=== PATIENT | male | born 1935 | race Caucasian/White ===

== ENCOUNTER 2018-11-07 17:27 | Inpatient (IN) | payer MEDICARE, BC ==
[~2018-11-07] VITALS: Ht 180.3 cm; Wt 81.6 kg
--- NOTE | ~2018-11-07 | HEMODYNAMI ---
PATIENT:PAWAN LEMOS MEDICAL RECORD: [id number] : 31 LOC[id number] ADMISSION DATE: 11/07/18 Generatedon:11/08/201810:26 Patient name: PAWAN LEMOS Patient #: [id number] SSN: [id number] : 1935 Date of study: 11/08/2018 Page: Of Hemodynamic Procedure Report Patient Data Patient Demographics Procedure consent was obtained First Name: PAWAN Gender: Male Last Name: : 1935 [facility] Initial: NAHEED Age: 83 year(s) Patient #: [id number] Race: SSN: [id number] Additional ID: [id number] Contact details Address: [address] [place] [address] State: [place] City: [place] Zip code: [address] Past Medical History Allergies: No known allergies Admission Admission Data Admission Date: 11/07/2018 Admission Time: 18:29 Arrival Date: 11/07/2018 Arrival Time: 0:00 Room #: D.2113 Insurance Payor: Medicare Height (in.): 70.87 BSA: 2.02 (m2) Height (cm.): 180 BMI: 25.31 (kg/m2) Weight (lbs.): 180.78 Weight (kg.): 82 Lab Results Lab Result Date: 11/08/2018 Lab Result Time: 0:00 Biochemistry Name Units Result Min Max BUN mg/dl 18 --(---*)-- 7 18 Creatinine mg/dl 1 --(--*-)-- 0.6 1.3 eGFR ml/min 75 *-(----)-- 90 120 NONAFRICAN CBC Name Units Result Min Max Hematocrit % 41.6 -*(----)-- 42 54 Hemoglobin g/dl 15.1 --(-*--)-- 13.5 17.5 Procedure Procedure Types Cath Procedure Diagnostic Procedure LHC LHC w/Coronaries w/Grafts FFR/IVUS FFR Initial Sedation Charges Moderate Sedation up to 30 minutes PCI Procedure Coronary Stent Coronary Stent Initial AMI/SVG/PHOTOGRAPHIC EQUIPMENT MECHANIC PTCA or Stent SVG-BMS/GISSELLE Initial Procedure Description Procedure Date Procedure Date: 11/08/2018 Procedure Start Time: 9:48 Procedure End Time: 10:21 Procedure Staff Name Function Solo Riley MD Performing Physician Charleen Arita RT Monitor Aniyah Ha RN Nurse Justine Mauricio RT Scrub Procedure Data Cath Procedure Fluoroscopy Diagnostic fluoroscopy Total fluoroscopy Time: 9.9 time: 9.9 min min Diagnostic fluoroscopy Total fluoroscopy dose: dose: 1167 mGy 1167 mGy Contrast Material Contrast Material Type Amount (ml) Isovue 300 218 Entry Location Entry Primary Successful Side Size Upsize Upsize Entry Closure Succes sful Closure Location (Fr) 1 (Fr) 2 (Fr) Remarks Device Remarks Femoral Right 5 Fr 6 Fr Exoseal artery Short Estimated blood loss: 10 ml Diagnostic catheters Device Type Used For End Catheter Placement MULTIPACK Pigtail 5 Fr Procedure catheter MULTIPACK JL 4.0 5Fr Procedure catheter DIAGNOSTIC AR2 MOD 5 Fr Procedure catheter ([id number]) Procedure Complications No complications Procedure Medications Medication Administration Route Dosage 0.9% NaCl I.V. 100 ml/hr Oxygen etCO2 Nasal cannula 2 l/min Lidocaine 2% added to field 20 Heparin Flush Bag added to field 2 bags (1000units/500ml NS) Versed I.V. 2 mg Fentanyl I.V. 50 mcg Fentanyl I.V. 50 mcg Heparin Bolus I.V. 4000 units Integrilin (Bolus I.V. 7.3 ml 2mg/ml) Integrilin (Bolus wasted 2.7 ml 2mg/ml) Plavix P.O. 300 mg Cardene I.C. 300 mcg Cardene I.C. 300 mcg Hemodynamics Rest BSA: 2.02 (m2) HGB: 15.1 (g/dl) O2 Consumption: Estimated: 236.66 (ml/min) O2 Co nsumption indexed: Estimated:117.16 (ml/min/m) Heart Rate: 80 (bpm) Snapshots Pre Cath Intra NCS Post Cath Vital Signs Time Heart Resp SPO2 etCO2 NIBP (mmHg) Rhythm Pain Sedation Rate (ipm) (%) (mmHg) Status Level (bpm) 9:32:36 70 12 96 22.5 154/78(119) NSR 0 (11) 10(A) , No pain 9:36:54 68 17 97 12 149/68(116) NSR 0 (11) 10(A) , No pain 9:41:02 61 19 97 13.6 118/65(95) NSR 0 (11) 10(A) , No pain 9:45:14 72 17 98 24.7 140/75(118) NSR 0 (11) 10(A) , No pain 9:49:36 61 14 97 19.5 149/71(122) NSR 0 (11) 10(A) , No pain 9:54:41 68 15 97 23.2 132/67(103) NSR 0 (11) 9(A) , No pain 9:59:40 67 14 96 30 Measuring NSR 0 (11) 9(A) , No pain 9:59:56 70 14 96 31.5 134/70(112) NSR 0 (11) 9(A) , No pain 10:04:12 71 16 96 23.2 147/80(119) NSR 0 (11) 9(A) , No pain 10:08:35 63 17 97 23.2 135/73(111) NSR 0 (11) 9(A) , No pain 10:12:55 67 15 98 30 123/67(100) NSR 0 (11) 9(A) , No pain 10:17:11 72 16 98 30 119/65(101) NSR 0 (11) 10(A) , No pain 10:21:21 73 16 96 26.2 137/80(99) NSR 0 (11) 10(A) , No pain Medications Time Medication Route Dose Verified Delivered Reason Notes Effectiveness by by 9:31:24 0.9% NaCl I.V. 100 Solo Aniyah used for ml/hr Rosemary Ha final cleaner 9:31:29 Oxygen etCO2 2 Solo Aniyah used for Nasal l/min Rosemary Ha procedure cannula RN 9:31:37 Lidocaine 2% added 20ml Solo Banda for local to vial Rosemary Riley MD anesthetic field 9:31:41 Heparin Flush added 2 Solo Banda used for Bag to bags Rosemary Riley MD procedure (1000units/500ml field NS) 9:46:35 Versed I.V. 2 mg Solo Aniyah for sedation Rosemary aH RN 9:46:41 Fentanyl I.V. 50 Solo Aniyah for sedation mcg Rosemary Ha RN 9:52:00 Fentanyl I.V. 50 Solo Childsyla for sedation mcg Rosemary Ha RN 10:02:48 Heparin Bolus I.V. 4000 Solo Souzaa for verif ied units Rosemary Ha anticoagulation with Dr. ORAL Riley 10:05:02 Integrilin I.V. 7.3 Solo Aniyah for (Bolus 2mg/ml) ml Rosemary Ha antiplatelet RN therapy 10:05:14 Integrilin wasted 2.7 Solo Aniyah for (Bolus 2mg/ml) ml Rosemary Ha antiplatelet RN therapy 10:05:29 Plavix P.O. 300 Solo Childsyla for mg Rosemary Ha antiplatelet RN therapy 10:11:47 Cardene I.C. 300 Solo Banda Per physician birgit Riley MD 10:15:14 Cardene I.C. 300 Solo Solo Per physician birgit Riley MD Procedure Log Time Note 9:05:13 Charleen Arita RT(R) sent for patient. Start room use. 9:12:14 Time tracking: Regular hours (M-F 7:00 - 5:00) 9:12:20 Plan of Care:Hemodynamics will remain stable., Cardiac rhythm will remain stable., Comfort level will be maintained., Respiratory function will remain adequate., Patient/ family verbilizes understanding of procedure., Procedure tolerated without complication., Recovers from procedure without complications.. 9:27:21 Patient received from PCU to CCL 1 Alert and oriented. Tansferred to table in Supine position. 9:27:24 Signed procedure consent form obtained from patient. 9:27:24 Warm blankets applied, and claudia hugger turned on for patient comfort. 9:27:25 Correct patient and procedure confirmed by team. 9:27:25 ECG and BP/O2 sat monitors applied to patient. 9:31:15 Vital chart was started 9:31:24 0.9% NaCl 100 ml/hr I.V. was administered by Aniyah Ha RN; used for procedure; 9:31:29 Oxygen 2 l/min etCO2 Nasal cannula was administered by Aniyah Ha RN; used for procedure; 9:31:37 Lidocaine 2% 20ml vial added to field was administered by Solo Riley MD; for local anesthetic; 9:31:41 Heparin Flush Bag (1000units/500ml NS) 2 bags added to field was administered by Solo Riley MD; used for procedure; 9:32:26 Baseline sample Acquired. 9:32:30 Rhythm: sinus rhythm 9:32:31 Full Disclosure recording started 9:32:31 Pre-op teaching completed and patient verbalized understanding. 9:32:34 Pre-procedure instructions explained to patient. 9:32:36 Family in patients room. 9:32:38 Patient NPO since Midnight. 9:32:42 Patient allergic to No known allergies 9:32:44 Is patient on blood thinner?Yes 9:32:45 ACC The patient was administered the following blood thiners within the last 24 hours: ACCPlavix 9:32:47 Patient diabetic? No. 9:32:53 Previous problem with sedation/anesthesia? No ? 9:32:55 Snore? Yes 9:32:56 Sleep apnea? No 9:32:57 Deviated septum? No 9:32:58 Opens mouth fully? Yes 9:32:59 Sticks out tongue? Yes 9:33:08 Airway obstruction? Yes EMPHYSEMA, PNUEMONIA 9:33:12 Dentures? No ? 9:33:16 Pre procedure: right dorsailis pedis pulse 1+ Palpable, but thready & weak; easily obliterated 9:33:19 Patient pain scale 0/10 ?. 9:33:23 IV patent on arrival in left forearm with 0.9% NaCl at [facility]. 9:33:59 Lab Result : BUN 18 mg/dl 9:33:59 Lab Result : Creatinine 1 mg/dl 9:34:00 Lab Result : eGFR NONAFRICAN 75 ml/min 9:34:00 Lab Result : Hemoglobin 15.1 g/dl 9:34:00 Lab Result : Hematocrit 41.6 % 9:34:03 Lab results completed and on chart. 9:34:07 Right groin area was prepped with chlora-prep and draped in sterile fashion 9:34:08 Alarms reviewed by RCorrie N. 9:34:09 Sharps counted by scrub and verified by R.N. 9:34:10 Sharps counted by scrub and verified by R.N. 9:34:24 Patient Weight : 180.78 lbs 9:34:27 Patient Height : 70.87 inches 9:34:32 Arrival Date: 11/07/2018 12:00:00 AM 9:34:37 Insurance Payor : Medicare 9:34:44 Use device set Femoral Dx 9:34:46 ACIST Syringe (38307) opened to sterile field. 9:34:47 Bag Decanter (2002S) opened to sterile field. 9:34:48 ACIST Hand Control (67254) opened to sterile field. 9:34:48 ACIST Manifold (78374) opened to sterile field. 9:34:49 Tegaderm 4 x 4 (1626W) opened to sterile field. 9:34:50 Medline Cath Pack ([id number]) opened to sterile field. 9:34:51 DIAGNOSTIC Multipack 5Fr catheter set (GE6780) opened to sterile field. 9:34:52 SHEATH 5FR Lowell (ZCR247) opened to sterile field. 9:34:52 EMERALD Guide Wire (363-372) opened to sterile field. 9:43:35 Procedure type changed to Cath procedure, Diagnostic procedure, LHC, LHC w/Coronaries w/Grafts, FFR/IVUS, FFR Initial, Sedation Charges, Moderate Sedation up to 30 minutes, PCI procedure, Coronary Stent, Coronary Stent Initial, AMI/SVG/PHOTOGRAPHIC EQUIPMENT MECHANIC PTCA or Stent, SVG-BMS/GISSELLE Initial 9:43:43 Diagnostic Cath Status : Urgent 9:43:45 PCI Cath Status : Urgent 9:45:57 --------ALL STOP TIME OUT------ 9:45:58 Final Timeout: patient, procedure, and site verified with staff and physician. All members of the team are in agreement. 9:46:01 Right groin site verified by team. 9:46:05 Fire Safety Assessment: A--An alcohol-based skin anteseptic being used preoperatively., C--Open oxygen or nitrous oxide is being used., D--An ESU, laser, or fiber-optic light is being used. 9:46:10 Physical assessment completed. ASA score P 2 - A patient with mild systemic disease as per Solo Riley MD. 9:46:13 2) 60-89 Mildly reduced kidney function, and other findings (as for stage 1) point to kidney disease. 9:46:19 Maximum allowable contrast dose (3.7 X eGFR X 0.75)208 ml. 9:46:22 Sedation plan: IV Moderate Sedation Medication:Versed, Fentanyl 9:46:35 Versed 2 mg I.V. was administered by Aniyah Ha RN; for sedation; 9:46:41 Fentanyl 50 mcg I.V. was administered by Aniyah Ha RN; for sedation; 9:48:08 Procedure started. 9:48:11 Zero performed for pressure channel P1 9:48:20 Local anesthetic to right femoral artery with Lidocaine 2% by Solo Riley MD.INITIAL ACCESS ONLY 9:48:38 A 5 Fr sheath was inserted into the Right Femoral artery 9:49:41 A MULTIPACK Pigtail 5 Fr catheter was advanced over the wire and used for Procedure. 9:49:56 LV gram done using CIFUENTES 9:49:59 Injector settings: Ml/sec: 10, Volume: 20, 9:50:06 EF : 40 % 9:50:41 Catheter removed. 9:51:45 A MULTIPACK JL 4.0 5Fr catheter was advanced over the wire and used for Procedure. 9:51:49 DOMINGUEZ to LAD angiography performed. 9:52:00 Fentanyl 50 mcg I.V. was administered by Aniyah Ha RN; for sedation; 9:53:25 UNABLE TO ENGAGE LCA 9:53:35 SHEATH 6FR Lowell (GVC689) opened to sterile field. 9:53:43 Sheath upsized to a 6 Fr Short. 9:53:58 GUIDE 6FR EBU 4.0 guide catheter ([id number]) opened to sterile field. 9:57:13 6 Fr EBU 4 guide catheter was inserted over the wire 9:57:17 LCA angiography performed. 9:57:20 [place] Verrata Plus pressure wire (59331H) opened to sterile field. 9:58:07 FFR/IFR wire advanced. 9:58:22 Wire advanced across lesion. 10:00:23 INFLATOR Merit BasixCompak (LY7861) opened to sterile field. 10:00:23 Pre PCI Site: Vein Graft pRCA has 85% stenosis. 10:00:28 Pre PCI Site: [place] Diag1 has 85% stenosis. 10:00:38 Pre PCI Site: Vein Graft pCirc has 85% stenosis. 10:01:57 Diag1 lesion measured at .82 with IFR 10:02:48 Heparin Bolus 4000 units I.V. was administered by Aniyah Ha RN; for anticoagulation; verified with Dr. Riley 10:04:28 Place stent Inflation Number: 1 A ALESHIA RX 2.25 x 22 stent ([id number]) was prepped and advanced across the 1st Diag . The stent was deployed at 15 GANESH for 0:00 (min:sec) . 10:04:52 Stent catheter was removed intact over wire. 10::52 Wire removed. 10:04:53 Guide catheter removed. 10:05:02 Integrilin (Bolus 2mg/ml) 7.3 ml I.V. was administered by Aniyah Ha RN; for antiplatelet therapy; 10:05:14 Integrilin (Bolus 2mg/ml) 2.7 ml wasted was administered by Aniyah Ha RN; for antiplatelet therapy; 10:05:19 6 Fr AR 2 guide catheter was inserted over the wire 10:05:19 GUIDE 6FR AR 2.0 catheter ([id number]) opened to sterile field. 10:05:19 A DIAGNOSTIC AR2 MOD 5 Fr catheter ([id number]) was advanced over the wire and used for Procedure. 10:05:29 Plavix 300 mg P.O. was administered by Aniyah Ha RN; for antiplatelet therapy; 10:07:07 SVG to RCA angiography performed. 10:08:36 SVG to Circ angiography performed. 10:09:15 CHOICE PT Extra Support 182cm wire ([id number]) opened to sterile field. 10:11:11 Place stent Inflation Number: 1 A ALESHIA RX 4.0 x 22 stent ([id number]) was prepped and advanced across the Aorta Left -> Mid CX . The stent was deployed at 19 GANESH for 0:00 (min:sec) . 10:11:47 Cardene 300 mcg I.C. was administered by Solo Riley MD; Per physician; 10:12:03 Stent catheter was removed intact over wire. 10:12:03 Wire removed from svg- CX. 10:13:16 WIRE ADVANCED TO THE SVG- RCA 10:15:14 Cardene 300 mcg I.C. was administered by Solo Riley MD; Per physician; 10:15:18 Place stent Inflation Number: 1 A ALESHIA RX 5.0 x 18 stent ([id number]) was prepped and advanced across the Aorta Right -> Prox RCA . The stent was deployed at 17 GANESH for 0:00 (min:sec) . 10:15:48 Stent catheter was removed intact over wire. 10:15:48 Wire removed. 10:15:49 Guide catheter removed. 10:16:22 EXOSEAL 6Fr (EX600) opened to sterile field. 10:16:39 Sheath removed intact; hemostasis achieved with Exoseal to the Right Femoral artery. 10:16:40 Procedure ended.(Physican Out) 10:18:18 Fluoroscopy time 09.90 minutes. 10:18:21 Flurop Dose total: 1167 10:18:21 Fluoroscopy dose: 1167 mGy 10:18:26 Contrast amount:Isovue 300 218ml. 10:18:47 Dose Area Product 13391 mGy/cm. 10:18:51 Post-op/insertion site Right Femoral artery dressed using a 4 x 4 and Tegaderm. 10:18:53 Post-procedure physical assessment completed. ASA score P 2 - A patient with mild systemic disease as per Solo Riley MD. 10:18:57 Post procedure rhythm: sinus rhythm 10:19:01 Estimated blood loss: 10 ml 10:19:02 Post procedure instruction explained to patient.Patient verbalizes understanding. 10:19:03 Patient needs reinforcement of post procedure teaching. 10:20:29 Procedure and supply charges have been captured, reviewed, submitted and are correct. 10:21:09 Procedure Complication : No complications 10:21:11 Vital chart was stopped 10:21:11 See physician's report for complete and final results. 10:21:13 Report given to Pre/Post Procedure Room. 10:21:15 Patient transfered to Pre/Post Procedure Room with Bed. 10:21:17 Procedure ended. 10:21:17 Full Disclosure recording stopped 10:21:22 End room use (Document Last) Intervention Summary Intervention Notes Time ActionType Lesion and Equipment Used Action# Pressure Duration Attributes 10:04:28 Place stent 1st Diag ALESHIA RX 2.25 x 1 15 00:00 22 stent ([id number]) 10:11:11 Place stent Aorta Left ALESHIA RX 4.0 x 1 19 00:00 -> Mid CX 22 stent ([id number]) 10:15:18 Place stent Aorta Right ALESHIA RX 5.0 x 1 17 00:00 -> Prox RCA 18 stent ([id number]) Device Usage Item Name Manufacture Quantity Catalog Number Hospital Part Current Minimal Lot# / Charge Number Stock Stock Serial# Code ACIST Syringe Acist 1 75653 718831 646013 623328 20 (14638) Medical Systems Inc Bag Decanter Microtek 1 2001S 275845 76729 619814 5 (2001S) Medical Inc. ACIST Hand Acist 1 96615 916274 901518 699729 5 Control Medical (15255) Systems Inc ACIST Manifold Acist 1 05903 689919 810680 237719 5 (80633) Medical Systems Inc Tegaderm 4 x 4 3M 1 1626W 531804 294164 106130 5 (1626W) Medline Cath Medline 1 [id number] 788499 39034 826219 5 Pack ([id number]) DIAGNOSTIC Cardinal 1 GS1147 366325 99380 795442 30 Multipack 5Fr Health catheter set (PT5132) SHEATH 5FR Terumo 1 ESC584 287543 625847 193556 5 [place]ell (JVK030) EMERALD Guide Cardinal 1 502-455 734870 522516 380742 5 Wire (502-455) Health MULTIPACK Cardinal 1 571869 5 Pigtail 5 Fr Health catheter MULTIPACK JL Cardinal 1 987535 5 4.0 5Fr Health catheter SHEATH 6FR Terumo 1 QBG210 480601 878344 465653 40 [place]ell (ZMC410) GUIDE 6FR EBU Medtronic 1 [id number] 724832 14771 063907 1 4.0 guide catheter (SC4VJI36) [place] Franklinton 1 84568N 668808 020892705 503805 5 Verrata Plus pressure wire (32134C) ALESHIA RX 2.25 x Medtronic 1 [id number] 968003 4080062 693468 5 [id number] 22 stent ([id number]) DIAGNOSTIC AR2 Cardinal 1 [id number] 637966 589220 853808 20 MOD 5 Fr Health catheter (365359O) CHOICE PT [place] 1 [id number] 401897 118010 876931 5 Extra Support Scientific 182cm wire ([id number]) INFLATOR Merit Merit 1 VI7741 155500 249812 516003 15 [facility] (EU7744) ALESHIA RX 4.0 x Medtronic 1 [id number] 346545 4897944 696501 5 [id number] 22 stent ([id number]) GUIDE 6FR AR Medtronic 1 [id number] 082948 22292 766518 1 2.0 catheter (FC0MY45) ALESHIA RX 5.0 x Medtronic 1 [id number] 436323 3896279 999024 5 [id number] 18 stent ([id number]) EXOSEAL 6Fr Cardinal 1 EX600 711700 655456 264966 10 (EX600) Health Signature Audit Smock Stage Time Signature Unsigned Intra-Procedure 11/08/2018 Charleen Arita 10:26:14 AM RT(R) Signatures Performing Physician : Signature : Solo Riley MD Date : Time : Monitor : Charleen Arita Signature : RT Date : Time : Nurse : Aniyah Ha RN Signature : Date : Time : [facility] [address] [place] [address]
[~2018-11-07 17:27] MED LIST: ASPIRIN EC81 M1 PO; BETIMOL15 ML EACH EYE; FLOMAX0.4 MG PO; ICAPS AREDS1 TAB.SA PO; NEURONTIN 300300 MG PO; PRAVACHOL40 MG PO; PRILOSEC20 MG PO; PROSCAR5 MG PO; XALATAN 0.0052.5 ML EACH EYE; XALATAN 0.0052.5 ML LEFT EYE
[2018-11-07 18:57] LABS: BASOPHILS 0.3 % (0-2); EOSINOPHILS 0.4 % (0-7); HEMATOCRIT 43.5 % (42.0-54.0); HEMOGLOBIN 15.8 g/dL (13.5-17.5); IMMATURE GRANULOCYTES 1.7 % (0-5); LYMPHOCYTES 14.1 % (15-50); MCH 32.2 pg (26.0-34.0); MCHC 36.3 g/dL (31.0-37.0); MCV 88.8 fL (80.0-100.0); MEAN PLATELET VOLUME 10.6 fL (7.4-10.4); MONOCYTES 0.8 % (2-11); NEUTROPHILS 82.7 % (40-80); PLATELET COUNT 124 10x3/uL (130-400); RDW 13.2 % (11.5-14.5); WBC 7.7 10x3/uL (4.8-10.8)
[2018-11-07 19:01] LABS: APTT 21.8 SECONDS (22.8-39.4); INR 1.03 (0.85-1.17)
[2018-11-07 19:17] LABS: ALBUMIN 3.9 g/dL (3.4-5.0); ALKALINE PHOSPHATASE 81 U/L (46-116); ALT (SGPT) 16 U/L (10-68); BILIRUBIN - TOTAL 0.87 mg/dL (0.2-1.3); CALC OSMOLALITY 294 mosm/kg (275-300); CALCIUM 8.9 mg/dL (8.5-10.1); CARBON DIOXIDE 26.3 mmol/L (21.0-32.0); CHLORIDE - SERUM 110 mmol/L (98-107); CREATININE - SERUM 0.8 mg/dL (0.6-1.3); GLUCOSE 130 mg/dL (74-106); POTASSIUM - SERUM 4.2 mmol/L (3.5-5.1); PROTEIN - SERUM 6.8 g/dL (6.4-8.2); SODIUM 148 mmol/L (136-145); UREA NITROGEN 10 mg/dL (7-18); eGFR NON AFRICAN AMERICAN > 90 mL/min (90-120)
[2018-11-07 19:31] LABS: CKMB 1.2 U/L (0.0-3.6); CREATINE KINASE 68 UL (21-232); MAGNESIUM - SERUM 2.1 mg/dL (1.8-2.4)
[2018-11-07 19:35] LABS: TROPONIN-I < 0.017 ng/mL (0.000-0.060)
[2018-11-07 20:00] VITALS: BP 178/82
[2018-11-07] MEDS ORDERED: TIMOPTIC 0.5 % O5 ML (21:31)
[2018-11-08] VITALS: BP 127/72
[2018-11-08 00:38] LABS: CKMB 1.2 U/L (0.0-3.6); CREATINE KINASE 58 UL (21-232)
[2018-11-08 00:39] LABS: TROPONIN-I < 0.017 ng/mL (0.000-0.060)
[2018-11-08 02:23] VITALS: BP 128/49; BP 178/82; BMI 25.1
[2018-11-08 04:30] VITALS: BP 116/50
[2018-11-08 06:43] LABS: BASOPHILS 0.1 % (0-2); EOSINOPHILS 0 % (0-7); HEMATOCRIT 41.6 % (42.0-54.0); HEMOGLOBIN 15.1 g/dL (13.5-17.5); IMMATURE GRANULOCYTES 0.2 % (0-5); LYMPHOCYTES 14.6 % (15-50); MCH 31.9 pg (26.0-34.0); MCHC 36.3 g/dL (31.0-37.0); MCV 87.9 fL (80.0-100.0); MEAN PLATELET VOLUME 11.2 fL (7.4-10.4); MONOCYTES 1.1 % (2-11); PLATELET COUNT 136 10x3/uL (130-400); RBC 4.73 10x6/uL (4.20-6.10); RDW 13.3 % (11.5-14.5); WBC 8.1 10x3/uL (4.8-10.8)
[2018-11-08 07:19] LABS: ALBUMIN 3.3 g/dL (3.4-5.0); ALKALINE PHOSPHATASE 70 U/L (46-116); ALT (SGPT) 18 U/L (10-68); BILIRUBIN - TOTAL 0.65 mg/dL (0.2-1.3); CALC OSMOLALITY 290 mosm/kg (275-300); CARBON DIOXIDE 27.6 mmol/L (21.0-32.0); CHLORIDE - SERUM 109 mmol/L (98-107); CREATINE KINASE 54 UL (21-232); GLUCOSE 142 mg/dL (74-106); PROTEIN - SERUM 6.4 g/dL (6.4-8.2); SODIUM 144 mmol/L (136-145); TROPONIN-I < 0.017 ng/mL (0.000-0.060); eGFR NON AFRICAN AMERICAN 75 mL/min (90-120)
--- NOTE | 2018-11-08 07:26 | NUR ---
REPORT RECEIVED. WILL CONTINUE WITH POC. PT CURRENTLY LYING SEMI FOWLERS. CALL LIGHT W/I REACH. PT IS AAO AND UP WITH ASSIST. RR EVEN AND UNLABORED ON RA. R.HAND PIV IS SALINE LOCKED. PT DENIES ANY NEEDS. NO S/S OF DISTRESS NOTED. WILL CTM.
[2018-11-08 07:38] LABS: UREA NITROGEN 18 mg/dL (7-18)
--- NOTE | 2018-11-08 09:12 | NUR ---
PREOP MEDICATIONS ADMININSTERED PER PLASTIC MACHINE OPERATOR REQUEST. PREVIOUS PIV INFILTRATED. STARTED NEW PIV TO THE LEFT FOREARM 22GA X1 ATTEMPT. PT TOLERATED WELL. NS INFUSING @KVO VIA L.FOR PIV. CONSENTS SIGNED. WILL CTM.
[2018-11-08 10:03] VITALS: BP 140/74
--- NOTE | 2018-11-08 10:10 | HP ---
PATIENT: PAWAN LEMOS MEDICAL RECORD: [id number] ACCOUNT: [id number] LOCATION:[facility].2113 : 33 ADMISSION DATE: 11/07/18 PCP: UMSAN HOLLIDAY HISTORY AND PHYSICAL EXAMINATION ADMITTING DIAGNOSES: 1. Unstable angina. 2. Coronary artery disease. 3. Previous bypass surgery. 4. Previous multivessel percutaneous transluminal coronary angioplasty stent. 5. Hypertension. 6. Hyperlipidemia. 7. Chronic obstructive pulmonary disease. 8. Smoking. 9. Bronchitis. HISTORY OF PRESENT ILLNESS: Mr. Lemos has been having increasing episodes of chest pain, chest pressure as well as shortness of breath. He almost presented to [facility] Wednesday night and he got much worse over the weekend. Wednesday night once again, he had severe chest pressure, shortness of breath, and presented to [facility] finally Wednesday morning. Initially, this was felt to be a combination of COPD exacerbation, bronchitis as well as unstable angina. 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 They were concerned with his chest pain, chest pressure, and the CT findings. Hence was sent here. His last cardiac intervention was 2013. His symptomatology that he is having now is just like that prior to the needed cardiac interventions he has had in the past. His bypass surgery was done in the s. PHYSICAL EXAMINATION: CONSTITUTIONAL/GENERAL APPEARANCE: Well nourished, well developed, appears stated age. EYES: Lids and conjunctivae noninjected. No discharge. No pallor. ENT: Lips within normal limit. No cyanosis. No pallor. NECK: Carotid arteries, bilateral normal upstroke. No bruits. No thrills. No jugular venous pressure or distention. CERVICAL LYMPH NODES: Nontender. Nonenlarged. THYROID: Not enlarged. No nodules. CARDIOVASCULAR: Precordial exam, nondisplaced. No heaves or pericardial thrills. Rate and rhythm, regular. Heart sounds, normal S1, normal S2. No S3, no gallop, no rub. Systolic murmur, not heard. Diastolic murmur, not heard. RESPIRATORY: Respiratory effort, unlabored. Normal curvature. No thoracic deformity. No chest wall tenderness. Percussion, resonant. Auscultation, clear. No wheezes, no rales, no rhonchi. ABDOMEN: Soft, nondistended, nontender. No abdominal pain, no vomiting and normal appetite. MUSCULOSKELETAL: No joint tenderness, normal gait, normal tone. SKIN: Warm and dry. OVERALL IMPRESSION: Unstable angina in a patient with a past history of coronary artery disease, coronary bypass graft surgery, multivessel PTCA stent, hypertension, hyperlipidemia, family history of coronary artery disease and now class IV anginal symptomatology at rest. We will proceed with coronary angiography. Further care depends upon findings of the angiography. HISTORY AND PHYSICAL [id number] PAWAN LEMOS TRANSINT:[id number] Voice Confirmation ID: [id number] DOCUMENT ID: [id number] RADHA WITT MD at 1010 CC: [id number] DICTATION DATE: 11/08/18848 ASSEMBLER UNIT: 11/08/18 0904 ADM IN [facility] [address] [id number]
--- NOTE | 2018-11-08 11:13 | NUR ---
PT RETURNED FROM SNUFF CONTAINER INSPECTOR. RIGHT FEMORAL SITE IS C/D/I WITH NO S/S OF HEMATOMA PRESENT. PERIPHERAL PULSES BILATERALLY EVEN AND STRONG. NO S/S OF DISTRESS NOTED. VSS AND WNL. NS INFUSING @100ML/HR VIA L.FOR PIV. PT IS CURRENTLY SUPINE AND WILL BE FOR NEXT 4 HOURS. WILL CTM.
--- NOTE | 2018-11-08 14:20 | NUR ---
I have reviewed this patient and I concur with the Shift Assessment completed by the Licensed Practical Nurse today this shift.
[2018-11-08 14:24] VITALS: Ht 180.3 cm; Wt 81.6 kg
[2018-11-08] MEDS ORDERED: AMOX TR-K CLV 21 TAB PO (16:37)
[2018-11-08] MEDS ORDERED: PLAVIX75 MG PO (16:37)
--- NOTE | 2018-11-08 17:02 | MORECARE ---
CASE MANAGEMENT DISCHARGE SUMMARY PATIENT: PAWAN LEMOS UNIT: [id number] ADM DATE: 11/07/18 AGE: 83 : [birth year] SEX: M ROOM/BED: D.6429 AUTHOR: ZEESHAN,DOC PHYSICIAN: REFERRING PHYSICIAN: RADHA WITT MD DATE OF SERVICE: 11/08/18 Discharge Plan Patient Name: PAWAN LEMOS Facility: [facility]:[place] : 1935 Planned Disposition: Home Anticipated Discharge Date: 11/08/18 Discharge Date: Expected LOS: 1 Initial Reviewer: [id number] Initial Review Date: 11/08/2018 Generated: 11/08/18 6:01 pm Comments DCP- Discharge Planning Updated by [email or web address]: Hardik Sanchez on 11/08/18 3:[address] Patient Name: PAWAN LEMOS Admission Status: ER Accout number: [id number] Admission Date: 11-07-2018 : 1935 Admission Diagnosis: Attending: OREN WITT Current LOS: 1 Anticipated DC Date: 11-08-2018 Planned Disposition: Home Primary Insurance: MEDICARE A & B Discharge Planning Comments: CM MET WITH PT IN ROOM TO DISCUSS DISCHARGE PLANNING AND NEEDS. PAWAN LEMOS provided verbal consent to discuss current and ongoing needs with/in the presence of: DAUGHTERSHAR. PT REPORTS LIVING AT HOME INDEPENDENTLY AND ALONE. PT HAS NO MEDICAL EQUIPMENT AND NO OUTSIDE SERVICES ASSISTING IN THE HOME. CM DISCUSSED AVAILABILITY OF HOME HEALTH, REHAB SERVICES AND MEDICAL EQUIPMENT. PT DENIES DISCHARGE NEEDS, REPORTS HIS DAUGHTER IS HERE TO PICK HIM UP FOR DISCHARGE HOME. Sales Floor Team Leader: Hardik Sanchez DCPIA - Discharge Planning Initial Assessment Updated by [email or web address]: Hardik Sanchez on 11/08/18 4:53 pm * Is the patient Alert and Oriented? Yes * How many steps to enter\exit or inside your home? none * PCP ELISHA MATTSON * Pharmacy [facility] IN [place] OR [place] [facility] * Preadmission Environment Home Alone * ADLs Independent * Equipment None * Other Equipment [facility] PATIENT, [place] - PREFERRED PROVIDER * List name and contact numbers for known caregivers / representatives who currently or will assist patient after discharge: SHAR OWENS, DTR, * Verbal permission to speak to the caregivers and representatives has been obtained from the patient. Yes * Community resources currently utilized None * Please name any agencies selected above. NONE * Additional services required to return to the preadmission environment? No * Can the patient safely return to the preadmission environment? Yes * Has this patient been hospitalized within the prior 30 days at any hospital? No Patient Name: PAWAN LEMOS Page [id number] at 1702 All edits/amendments must be made on the electronic document DICTATION DATE: 11/08/181700 MAINTENANCE SERVICE TECHNICIAN: SRIKANTH 11/08/181700 RPT#: [id number] DC DATE: STATUS: ADM IN [facility] [address] [place] [address] END OF REPORT
--- NOTE | 2018-11-08 17:15 | NUR ---
PT DISCHARGED HOME VIA WHEELCHAIR WITH FAMILY. PT SIGNED PROPER DISCHARGE INSTRUCTIONS AND REMOVED ALLVALUABLES FROM THE ROOM. TELEMETRY REMOVED AND RETURNED. SCRIPTS GIVEN. PIV REMOVED WITH CATHETER TIP FULLY INTACT.
--- NOTE | 2018-11-15 13:38 | DS ---
PATIENT:PAWAN LEMOS :31 MEDICAL RECORD: [id number] DISCHARGE SUMMARY ADMISSION DATE: 11/07/18 DISCHARGE DATE: 11/08/18 DATE OF DISCHARGE: 11/08/2018 DIAGNOSES: 1. Unstable angina. 2. Coronary artery disease. 3. Percutaneous transluminal coronary angioplasty stent vein graft to right coronary artery, vein graft to left circumflex and [place] left anterior descending diagonal this admission. 4. Bronchitis. 5. Chronic obstructive pulmonary disease. 6. Smoking. 7. Hypertension. 8. Hyperlipidemia. HOSPITAL COURSE: Mr. Lemos presents with unstable anginal symptomatology as well as COPD exacerbation, bronchitis. He was treated with antibiotics for the bronchitis, underwent cardiac catheterization revealing significant disease of the LAD diagonal with a close graft, the vein graft to the RCA and vein graft to circumflex, underwent successful PTCA stent of all these territories, was discharged home with the addition of aspirin and Plavix to his medical regimen. He will follow up with [facility] in [facility] month. TRANSINT:[id number] Voice Confirmation ID: [id number] DOCUMENT ID: [id number] RADHA WITT MD at 1338 CC: [id number] DICTATION DATE: 11/08/18 1025 SHANK PIECE TACKER: 11/08/18 2321 DIS IN 11/08/18 [facility] [address] [place] [address]
--- NOTE | 2018-11-15 13:38 | EC ---
PATIENT:PAWAN LEMOS DATE OF SERVICE: 11/07/18 SEX: M MEDICAL RECORD: [id number] DATE OF : 31 LOCATION:D.M2 D.211 AGE OF PATIENT: 83 ADMISSION DATE: 11/07/18 REFERRING PHYSICIAN: INTERPRETING PHYSICIAN: RADHA RILEY MD ECHOCARDIOGRAM REPORT ECHO CHARGES 4 ECHO COMPLETE Date: 11/08/18 CLINICAL DIAGNOSIS: SOB/CORONARY ARTERY ANEURYSM, HX CAD STENTS ECHOCARDIOGRAPHIC MEASUREMENTS (adult normal given) AC root (d.<3.7cm) 4.0 cm LV Septum d (<1.2 cm> 1.2 cm Valve Excursion 1.4 cm LV Septum (systole) 1.5 cm Left Atria (s.<4.0cm> 4.3 cm LVPW d(<1.2cm) 1.5 cm RV (d.<2.3cm) 4.1 cm LVPW (sytole) 1.7 cm LV diastole(<5.6CM) 5.5 cm MV E-F(>70mm/sec) cm LV systole 3.4 cm LVOT Diameter 1.7 cm MV exc.(>10mm) 1.3 cm Est.ejection fraction (50-75%) % DOPPLER: LVIT cm/sec A 83.0 cm/sec E 67.0 cm/sec LA cm/sec RVSP 20 mmHg LVOT 97 cm/sec AOP1/2T m/s Asc. Ao 147 cm/sec RVOT 47 cm/sec RA cm/sec PA 134 cm/sec AV Gradient Peak 8.59 mmHg AV Mean 4.41 mmHg AV Area 1.3 cm MV Gradient Peak 3.88 mmHg MV Mean 1.14 mmHg MV Area cm COMMENTS: Insulation And Flooring Assembler: Myranda BHAKTA Domestic Laundry Worker: 1 Dr. Riley TAPE# PACS Pericardial Effusion N DATE OF SERVICE: PROCEDURE: Echocardiogram. FINDINGS: 1. Left ventricular chamber size is within normal limits. Left ventricular systolic function is normal at 55% to 60%. 2. Left atrium is enlarged at 4.3 cm. Right atrium and right ventricular chamber sizes are as well xuij-ln-cbcdupeddj dilated. 3. Valvular structures have normal structure and motion. ECHOCARDIOGRAM REPORT [id number] PAWAN LEMOS 4. Doppler interrogation reveals mild mitral regurgitation, mild tricuspid regurgitation, no other valvular insufficiency or stenosis. 5. No evidence of pericardial effusion or left ventricular thrombus. TRANSINT:[id number] Voice Confirmation ID: [id number] DOCUMENT ID: [id number] RADHA RILEY MD at 1338 CC: [id number] DICTATION DATE: 11/08/18 1213 LEAD JAVASCRIPT DEVELOPER: 11/08/18 1245 DIS IN 11/08/18 [place] [id number] [place] [id number]
--- NOTE | 2018-11-15 13:38 | OP ---
PATIENT NAME: PAWAN LEMOS MEDICAL RECORD: [id number] :31 LOCATION:D.M2 D.2113 ADMISSION DATE:11/07/18 SURGEON: RADHA WITT MD DATE OF OPERATION: 11/08/2018 PROCEDURES: 1. PTCA stent vein graft to left circumflex. 2. PTCA stent vein graft to RCA. 3. PTCA stent [place] LAD diagonal. 4. IFR. 5. Left heart catheterization. 6. Selective coronary angiography. 7. Vein graft angiography. 8. [place] angiography. INDICATION: Unstable angina and coronary artery disease. PROCEDURE IN DETAIL: After informed consent was obtained and after a detailed description of risks, benefits as well as alternative therapies, the patient elected to proceed with angiogram and angioplasty. The right femoral area was prepped and draped in normal sterile fashion. Right femoral artery was cannulated via modified Seldinger technique with placement of 6-[place] sheath. All catheters exchanged through this sheath. FINDINGS: The left ventriculogram was performed in standard 30-degree CIFUENTES view, reveals global hypokinesis, ejection fraction in the 40% range. SELECTIVE CORONARY ANGIOGRAPHY: 1. Left main is with no significant angiographic disease. 2. Left anterior descending is patent to the mid vessel. It is then totally occluded. There was a diagonal system that takes off after this. There appears to be an 85% to 90% stenosis in the diagonal. IFR was significantly abnormal at 0.82. 3. Left circumflex is totally occluded. 4. Vein graft to the LAD diagonal was closed. 5. [place] to the distal LAD is widely patent. Distal LAD is widely patent. 6. Vein graft to the circumflex is patent. Distal circumflex is patent; however, in the proximal shaft of the vein graft, there is 85% stenosis. 7. Right coronary artery is totally occluded. 8. Vein graft to the RCA is patent; however, in the mid shaft there is 80% to 85% stenosis. PTCA STENT OF THE [place] LAD DIAGONAL: The stent used was a 2.25 x 22 mm [place]. Result was 0% residual stenosis. PTCA STENT OF THE VEIN GRAFT TO THE CIRCUMFLEX: The stent used was a 4.0 x 22 mm [place]. Result was 0% residual stenosis. PTCA STENT OF THE VEIN GRAFT TO THE RCA: The stent used was a 5.0 x 18 mm [place]. Result was 0% residual stenosis. OVERALL IMPRESSION: Successful PTCA stent of the vein graft to the RCA, vein graft to the circumflex and [place] LAD diagonal all going from 80% to 85% initial stenosis to 0% residual. OPERATIVE REPORT [id number] PAWAN LEMOS TRANSINT:[id number] Voice Confirmation ID: [id number] DOCUMENT ID: [id number] RADHA WITT MD at 1338 CC: [id number] DICTATION DATE: 11/08/18 1028 WIRE WINDER: 11/08/18 1203 DIS IN 11/08/18 [place] [id number] [place] [address]
== END 2018-11-08 17:19 | disposition home or self-care (01) | DRG 247 ==
LOC: D.ER 17:27 → D.M2 18:29
PROVIDERS: Family Medicine; ADMIT Internal Medicine Interventional Cardiology; ATTEND Internal Medicine Interventional Cardiology
PROC: B2151ZZ Fluoroscopy of Left Heart using Low Osmolar Contrast (ICD-10-PCS; 2018-11-08)
PROC: 4A023N7 Measurement of Cardiac Sampling and Pressure, Left Heart, Percutaneous Approach (ICD-10-PCS; 2018-11-08)
PROC: 027236Z Dilation of Coronary Artery, Three Arteries with Three Drug-eluting Intraluminal Devices, Percutaneous Approach (ICD-10-PCS; principal; 2018-11-08 09:00)
PROC: B2181ZZ Fluoroscopy of Left Internal Mammary Bypass Graft using Low Osmolar Contrast (ICD-10-PCS; 2018-11-08 09:00)
DX: I25.110 Atherosclerotic heart disease of native coronary artery with unstable angina pectoris (principal); I10 Essential (primary) hypertension; E78.5 Hyperlipidemia, unspecified; J44.9 Chronic obstructive pulmonary disease, unspecified; F17.200 Nicotine dependence, unspecified, uncomplicated